=== PATIENT | male | born 1990 | race American Indian/Alaskan Native ===

== ENCOUNTER 2019-06-22 21:48 | Emergency (ER) | payer BC, OTHER ==
[2019-06-22 22:05] VITALS: BP 107/68
--- NOTE | 2019-06-23 00:44 | XRay Report ---
CHEST 2 VIEWS INDICATION / CLINICAL INFORMATION: Chest pain for 2 days. COMPARISON: 02/06/15 FINDINGS: SUPPORT DEVICES: None. HEART / MEDIASTINUM: No significant abnormality. LUNGS / PLEURA: No significant pulmonary or pleural abnormality. No pneumothorax. ADDITIONAL FINDINGS: No significant additional findings. IMPRESSION: 1. No acute findings. No significant change. Signer Name: Keven Cruz MD Signed: 06/23/2019 12:39 AM Workstation Name: [id number]
--- NOTE | 2019-06-23 01:16 | Emergency Department Report ---
ED General Adult HPI - General Chief complaint: Chest Pain Stated complaint: CHEST PAIN Time Seen by Provider: 06/23/19 00:36 Source: patient Mode of arrival: Ambulatory Limitations: No Limitations - History of Present Illness Initial comments: The patient presents to the emergency department with a chief complaint of burning of his chest was shortness of breath. 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 Patient complains of a cough with chest pain secondary to the cough. He states that multiple people at the job passed out due to the chemical exposure. -: Sudden Severity scale (0 -10): 2 Quality: burning Consistency: constant Improves with: none Worsens with: none Associated Symptoms: denies other symptoms Treatments Prior to Arrival: none - Related Data Previous Rx's Medication Instructions Recorded Last Taken Type ALBUTEROL Inhaler (OR & NICU) 2 puff IH QID PRN #1 inhalation 02/06/15 Unknown Rx [ProAir HFA Inhaler] Acetamin/Codeine 120-12Mg/5 ml 5 ml PO TID PRN #30 ml 02/06/15 Unknown Rx [Tylenol/Codeine] Azithromycin [Zithromax Z-PAUL] 250 mg PO DAILY #6 tablet 02/06/15 Unknown Rx Prednisone [Prednisone 10 mg 10 mg PO .TAPER #1 tab.ds.pk 02/06/15 Unknown Rx (6-Day Pack, 21 Tabs)] ALBUTEROL Inhaler (OR & NICU) 2 puff IH Q4HR PRN #1 inhalation 06/23/19 Unknown Rx [ProAir HFA Inhaler] Benzonatate [Tessalon Perles] 100 mg PO Q8HR PRN #20 capsule 06/23/19 Unknown Rx Naproxen [Naprosyn] 500 mg PO BID PRN #20 tablet 06/23/19 Unknown Rx Prednisone [predniSONE 10 mg 10 mg PO .TAPER #1 tab.ds.pk 06/23/19 Unknown Rx (6-Day Pack, 21 Tabs)] Allergies Allergy/AdvReac Type Severity Reaction Status Date / Time No Known Allergies Allergy Verified 02/06/15 22:38 ED Review of Systems ROS: Stated complaint: CHEST PAIN Other details as noted in HPI Comment: All other systems reviewed and negative Constitutional: denies: chills, fever Eyes: denies: eye pain, eye discharge, vision change ENT: denies: ear pain, throat pain Respiratory: denies: cough, shortness of breath, wheezing Cardiovascular: denies: chest pain, palpitations Endocrine: no symptoms reported Gastrointestinal: denies: abdominal pain, nausea, diarrhea Genitourinary: denies: urgency, dysuria Musculoskeletal: denies: back pain, joint swelling, arthralgia Skin: denies: rash, lesions Neurological: denies: headache, weakness, paresthesias Psychiatric: denies: anxiety, depression Hematological/Lymphatic: denies: easy bleeding, easy bruising ED Past Medical Hx - Past Medical History Previous Medical History?: No - Surgical History Past Surgical History?: No - Social History Smoking Status: Never Smoker Substance Use Type: Marijuana - Medications Home Medications: Home Medications Medication Instructions Recorded Confirmed Last Taken Type ALBUTEROL Inhaler (OR & NICU) 2 puff IH QID PRN #1 inhalation 02/06/15 Unknown Rx [ProAir HFA Inhaler] Acetamin/Codeine 120-12Mg/5 ml 5 ml PO TID PRN #30 ml 02/06/15 Unknown Rx [Tylenol/Codeine] Azithromycin [Zithromax Z-PAUL] 250 mg PO DAILY #6 tablet 02/06/15 Unknown Rx Prednisone [Prednisone 10 mg 10 mg PO .TAPER #1 tab.ds.pk 02/06/15 Unknown Rx (6-Day Pack, 21 Tabs)] ALBUTEROL Inhaler (OR & NICU) 2 puff IH Q4HR PRN #1 inhalation 06/23/19 Unknown Rx [ProAir HFA Inhaler] Benzonatate [Tessalon Perles] 100 mg PO Q8HR PRN #20 capsule 06/23/19 Unknown Rx Naproxen [Naprosyn] 500 mg PO BID PRN #20 tablet 06/23/19 Unknown Rx Prednisone [predniSONE 10 mg 10 mg PO .TAPER #1 tab.ds.pk 06/23/19 Unknown Rx (6-Day Pack, 21 Tabs)] ED Physical Exam - General Limitations: No Limitations General appearance: alert, in no apparent distress - Head Head exam: Present: atraumatic, normocephalic - Eye Eye exam: Present: normal appearance, PERRL, EOMI - ENT ENT exam: Present: mucous membranes moist - Neck Neck exam: Present: normal inspection - Respiratory Respiratory exam: Present: normal lung sounds bilaterally, wheezes. Absent: respiratory distress - Cardiovascular Cardiovascular Exam: Present: regular rate, normal rhythm. Absent: systolic murmur, diastolic murmur, rubs, gallop - GI/Abdominal GI/Abdominal exam: Present: soft, normal bowel sounds - Rectal Rectal exam: Present: deferred - Extremities Exam Extremities exam: Present: normal inspection - Back Exam Back exam: Present: normal inspection - Neurological Exam Neurological exam: Present: alert, oriented X3 - Psychiatric Psychiatric exam: Present: normal affect, normal mood - Skin Skin exam: Present: warm, dry, intact, normal color. Absent: rash ED Course Vital Signs 06/22/19 21:59 Temperature 98.7 F Pulse Rate 102 H Respiratory 16 Rate Blood Pressure 107/68 O2 Sat by Pulse 95 Oximetry ED Medical Decision Making - Radiology Data Radiology results: report reviewed - Medical Decision Making Discussed diagnosis and plan acute with patient Critical care attestation.: If time is entered above; I have spent that time in minutes in the direct care of this critically ill patient, excluding procedure time. ED Disposition Clinical Impression: Chemical pneumonitis Disposition: TO HOME OR SELFCARE Is pt being admited?: No Does the pt Need Aspirin: No Condition: Stable Instructions: Chemical Pneumonitis (ED) Additional Instructions: return if worse Prescriptions: Naproxen [Naprosyn] 500 mg PO BID PRN #20 tablet PRN Reason: pain Prednisone [predniSONE 10 mg (6-Day Pack, 21 Tabs)] 10 mg PO .TAPER #1 tab.ds.pk ALBUTEROL Inhaler (OR & NICU) [ProAir HFA Inhaler] 2 puff IH Q4HR PRN #1 inhalation PRN Reason: Shortness Of Breath Benzonatate [Tessalon Perles] 100 mg PO Q8HR PRN #20 capsule PRN Reason: Cough Referrals: PRIMARY CARE,MD [Primary Care Provider] - 3-5 Days [facility] [Provider Group] - 3-5 Days [facility] [Provider Group] - 3-5 Days Time of Disposition: :14
== END 2019-06-23 01:31 | disposition home or self-care (01) ==
LOC: ED 21:48
DX: J68.0 Bronchitis and pneumonitis due to chemicals, gases, fumes and vapors (principal); F12.10 Cannabis abuse, uncomplicated; Z79.899 Other long term (current) drug therapy
CPT/HCPCS: 71046; 93005; 93010

== ENCOUNTER 2020-08-15 22:09 | Emergency (ER) | payer MEDICARE, OTHER ==
[2020-08-16 01:04] LABS: Hematocrit 41.1 % (35.5-45.6); Hemoglobin 14.1 gm/dl (11.8-15.2); Mean Corpuscular HGB Conc 34 % (32-34); Mean Corpuscular Volume 85 fl (84-94); Platelet Count 167 K/mm3 (140-440); Red Blood Count 4.83 M/mm3 (3.65-5.03); Red Cell Distribution Width 13.7 % (13.2-15.2)
[2020-08-16 01:18] LABS: Alanine Aminotransferase 12 units/L (7-56); Albumin 4.3 g/dL (3.9-5); BUN/Creatinine Ratio 11; Basophils % (Auto) 0.4 % (0.0-1.8); Blood Urea Nitrogen 11 mg/dL (9-20); Calcium 8.9 mg/dL (8.4-10.2); Eosinophils # (Auto) 0.2 K/mm3 (0.0-0.4); Eosinophils % (Auto) 3.8 % (0.0-4.3); Hemolysis Index 7; Lymphocytes # (Auto) 3.1 K/mm3 (1.2-5.4); Monocytes # (Auto) 0.4 K/mm3 (0.0-0.8); Monocytes % (Auto) 7.7 % (0.0-7.3)
[2020-08-16 02:34] LABS: Bilirubin,Urine NEG (Negative); Color,Urine Amber (Yellow)
[2020-08-16 02:35] LABS: Bacteria,Urine 1+ /HPF (Negative); Blood,Urine NEG (Negative); Mucus,Urine 3+ /HPF; Sperm,Urine FEW /HPF (NP)
--- NOTE | 2020-08-16 04:02 | Emergency Department Report ---
ED Abdominal Pain HPI - General Chief Complaint: Abdominal Pain Stated Complaint: ABD PAIN Time Seen by Provider: 08/16/20 02:47 Source: patient Mode of arrival: Ambulatory Limitations: No Limitations - History of Present Illness MD Complaint: abdominal pain -: Gradual Location: diffuse Radiation: none Migration to: suprapubic Severity: mild Severity scale (0 -10): 3 Quality: aching, burning Consistency: constant Improves With: nothing Worsens With: other (Urination) Associated Symptoms: dysuria. denies: nausea, vomiting, diarrhea, melena, hematuria, anorexia, syncope - Related Data Previous Rx's Medication Instructions Recorded Last Taken Type Acetamin/Codeine 120-12Mg/5 ml 5 ml PO TID PRN #30 ml 02/06/15 Unknown Rx [Tylenol/Codeine] Albuterol Mdi (or & Nicu Only) 2 puff IH QID PRN #1 inhalation 02/06/15 Unknown Rx [ProAir HFA Inhaler] Azithromycin [Zithromax Z-PAUL] 250 mg PO DAILY #6 tablet 02/06/15 Unknown Rx Prednisone [Prednisone 10 mg 10 mg PO .TAPER #1 tab.ds.pk 02/06/15 Unknown Rx (6-Day Pack, 21 Tabs)] Albuterol Mdi (or & Nicu Only) 2 puff IH Q4HR PRN #1 inhalation 06/23/19 Unknown Rx [ProAir HFA Inhaler] Benzonatate [Tessalon Perles] 100 mg PO Q8HR PRN #20 capsule 06/23/19 Unknown Rx Naproxen [Naprosyn] 500 mg PO BID PRN #20 tablet 06/23/19 Unknown Rx Prednisone [predniSONE 10 mg 10 mg PO .TAPER #1 tab.ds.pk 06/23/19 Unknown Rx (6-Day Pack, 21 Tabs)] Azithromycin [Zithromax TAB] 1,000 mg PO ONCE #2 tablet 08/16/20 Unknown Rx Cefixime [Suprax] 400 mg PO ONCE #1 capsule 08/16/20 Unknown Rx Sulfamethoxazole/Trimethoprim 1 each PO BID #20 tablet 08/16/20 Unknown Rx [Bactrim Ds] metroNIDAZOLE [Flagyl] 2,000 mg PO ONCE #4 tablet 08/16/20 Unknown Rx Allergies Allergy/AdvReac Type Severity Reaction Status Date / Time No Known Allergies Allergy Verified 02/06/15 22:38 ED Review of Systems ROS: Stated complaint: ABD PAIN Other details as noted in HPI ED Past Medical Hx - Past Medical History Previous Medical History?: No - Surgical History Past Surgical History?: Yes Additional Surgical History: titanium in R thigh, fx'd femur-2010 - Social History Smoking Status: Never Smoker Substance Use Type: None - Medications Home Medications: Home Medications Medication Instructions Recorded Confirmed Last Taken Type Acetamin/Codeine 120-12Mg/5 ml 5 ml PO TID PRN #30 ml 02/06/15 Unknown Rx [Tylenol/Codeine] Albuterol Mdi (or & Nicu Only) 2 puff IH QID PRN #1 inhalation 02/06/15 Unknown Rx [ProAir HFA Inhaler] Azithromycin [Zithromax Z-PAUL] 250 mg PO DAILY #6 tablet 02/06/15 Unknown Rx Prednisone [Prednisone 10 mg 10 mg PO .TAPER #1 tab.ds.pk 02/06/15 Unknown Rx (6-Day Pack, 21 Tabs)] Albuterol Mdi (or & Nicu Only) 2 puff IH Q4HR PRN #1 inhalation 06/23/19 Unknown Rx [ProAir HFA Inhaler] Benzonatate [Tessalon Perles] 100 mg PO Q8HR PRN #20 capsule 06/23/19 Unknown Rx Naproxen [Naprosyn] 500 mg PO BID PRN #20 tablet 06/23/19 Unknown Rx Prednisone [predniSONE 10 mg 10 mg PO .TAPER #1 tab.ds.pk 06/23/19 Unknown Rx (6-Day Pack, 21 Tabs)] Azithromycin [Zithromax TAB] 1,000 mg PO ONCE #2 tablet 08/16/20 Unknown Rx Cefixime [Suprax] 400 mg PO ONCE #1 capsule 08/16/20 Unknown Rx Sulfamethoxazole/Trimethoprim 1 each PO BID #20 tablet 08/16/20 Unknown Rx [Bactrim Ds] metroNIDAZOLE [Flagyl] 2,000 mg PO ONCE #4 tablet 08/16/20 Unknown Rx ED Physical Exam - General Limitations: No Limitations ED Medical Decision Making - Lab Data Result diagrams: 08/16/20 00:44 08/16/20 00:44 - Medical Decision Making This patient presents with abdominal pain of unclear etiology. Their evaluation has not identified a emergent etiology for the abdominal pain. Specifically, given the very benign exam, normal laboratory studies, and lack of significant risk factors, I have a very low suspicion for appendicitis, ischemic bowel, bowel perforation, or any other life threatening disease. I have discussed with the patient the level of uncertainty with undifferentiated abdominal pain and clearly explained the need to follow-up as noted on the discharge instructions, or return to the Emergency Department immediately if the pain worsens, develops fever, persistent and uncontrollable vomiting, or for any new symptoms or concerns. I discussed with the patient that this presentation today for abdominal pain could represent a significant risk for an acute abdominal process. Although the tests in the ED were essentially normal, there is still a possibility of a process such as appendicitis, diverticulitis, cholecystitis, ulcer, early bowel obstruction, mesenteric ischemia, kidney stone, or even kidney infection which could subsequently cause disability or . The symptoms seem to be more associated with patient given the presentation and the laboratory findings. There is a small suspicion for an STD we will treat accordingly while in emergency department the patient understands that they must return within 24 hours for a recheck or see their physician within 24 hours for re-exam due to the possibility of significant surgical or medical process. Critical care attestation.: If time is entered above; I have spent that time in minutes in the direct care of this critically ill patient, excluding procedure time. ED Disposition Clinical Impression: UTI (urinary tract infection) Disposition: -01 TO HOME OR SELFCARE Is pt being admited?: No Does the pt Need Aspirin: No Condition: Stable Instructions: Urinary Tract Infection, Adult Prescriptions: Sulfamethoxazole/Trimethoprim [Bactrim Ds] 1 each PO BID #20 tablet metroNIDAZOLE [Flagyl] 2,000 mg PO ONCE #4 tablet Cefixime [Suprax] 400 mg PO ONCE #1 capsule Azithromycin [Zithromax TAB] 1,000 mg PO ONCE #2 tablet Referrals: PRIMARY CARE, [Primary Care Provider] - 3-5 Days [facility] [Provider Group] - 3-5 Days
[2020-08-16 04:03] VITALS: BP 107/69
== END 2020-08-16 03:55 | disposition home or self-care (01) ==
LOC: ED 22:09
DX: N39.0 Urinary tract infection, site not specified (principal); Z79.899 Other long term (current) drug therapy
CPT/HCPCS: 36415; 80053; 81001; 85025; 87086; 99283